=== PATIENT | female | born 1970 | race Caucasian/White ===

== ENCOUNTER 2022-03-18 11:03 | Outpatient (CLI) | payer OTHER ==
[~2022-03-18 11:03] MED LIST: ALBUTEROL SULFATE 2.5 MG/0.5 ML INH NEB SOLN INH PRN; EPINEPHrine INJ 1 MG/ML 1ML AMP IM PRN; diphenhydrAMINE 50MG/ML VIAL (J1200) IV PRN; methylPREDNISolone 125MG 2ML VIAL IV PRN
[2022-03-18 11:17] VITALS: BP 176/79
[2022-03-18] MEDS ORDERED: IRON SUCROSE 200 MG in NS 100 ML OVER 1 HR IV ONE (11:30)
[2022-03-18] MEDS ORDERED: ACETAMINOPHEN TAB 650MG DOSE (2X325MG) PO ONE (11:30)
[2022-03-18] MEDS ORDERED: NS 1,000 ML IV SCH (11:30)
[2022-03-18 12:19] VITALS: BP 153/71
== END 2022-03-18 12:30 | disposition home or self-care (01) ==
LOC: M INFU 11:03 → EDUNIT# 11:30 → M INFU 12:30
PROVIDERS: ATTEND Student in an Organized Health Care Education/Training Program
DX: D50.8 Other iron deficiency anemias (principal)
CPT/HCPCS: 96365; J1756

== ENCOUNTER 2022-03-27 12:37 | Outpatient (CLI) | payer OTHER ==
[~2022-03-27] VITALS: Ht 167.6 cm; Wt 77.0 kg
[~2022-03-27 12:37] MED LIST changes: +ACETAMINOPHEN TAB 650MG DOSE (2X325MG) PO ONE; +IRON SUCROSE 200 MG in NS 100 ML OVER 1 HR IV ONE; +NS 1,000 ML IV SCH
[2022-03-27 13:05] VITALS: BP 136/77
[2022-03-27 14:35] VITALS: BP 172/87
== END 2022-03-27 14:35 | disposition home or self-care (01) ==
LOC: M INFU 12:37
PROVIDERS: ATTEND Student in an Organized Health Care Education/Training Program
DX: D50.8 Other iron deficiency anemias (principal); Z88.5 Allergy status to narcotic agent
CPT/HCPCS: 96365; J1756

== ENCOUNTER → 2022-08-05 | Outpatient (CLI) | payer OTHER | LOC: M INFU 08:00 | PROVIDERS: ATTEND Student in an Organized Health Care Education/Training Program | DX: Z53.9 Procedure and treatment not carried out, unspecified reason (principal); D50.8 Other iron deficiency anemias; Z88.5 Allergy status to narcotic agent ==

== ENCOUNTER → 2022-10-24 | Outpatient (REF) | payer OTHER ==
[2022-10-24 14:09] LABS: BASO # 0.1 10^3/uL (0.0-0.2); BASO % 0.9 % (0.0-1.0); EOS # 0.3 10^3/uL (0.0-0.5); EOS % 2.3 % (0.0-3.0); HEMATOCRIT 39.3 % (36.0-47.0); HEMOGLOBIN 11.9 g/dl (12.0-15.5); LYMPH # 3.7 10^3/uL (1.5-5.0); MEAN CORPUSCULAR HEMOGLOBIN 25.2 pg (27.0-33.0); MEAN CORPUSCULAR HGB CONC 30.3 g/dl (32.0-36.5); MEAN CORPUSCULAR VOLUME 83.3 fl (80.0-96.0); MONO # 0.4 10^3/uL (0.0-0.8); MONO % 3.1 % (2.0-8.0); NEUTROPHILS # 6.9 10^3/uL (1.5-8.5); NEUTROPHILS % 60.3 % (36.0-66.0); PLATELET COUNT, AUTOMATED 427 10^3/uL (150-450); RED BLOOD COUNT 4.72 10^6/uL (4.00-5.40); WHITE BLOOD COUNT 11.3 10^3/uL (4.0-10.0)
[2022-10-24 14:17] LABS: TOTAL PROTEIN,RANDOM URINE 36.9 MG/DL (0.0-14.0)
[2022-10-24 14:20] LABS: CREATININE,RANDOM URINE 154.6 MG/DL
[2022-10-24 14:22] LABS: ERYTHROCYTE SEDIMENTATION RATE 45 mm/hr (0-30)
[2022-10-24 14:35] LABS: MAGNESIUM LEVEL 1.9 MG/DL (1.8-2.4)
[2022-10-24 14:37] LABS: CPK CREATINE PHOSPHOKINASE 148 U/L (34-145)
[2022-10-24 14:39] LABS: PTH INTACT 41.4 PG/ML (18.5-88.0)
[2022-10-24 14:40] LABS: COMPLEMENT C3 151.1 MG/DL (90.0-170.0); COMPLEMENT C4 13.6 MG/DL (12-36)
[2022-10-24 14:41] LABS: TOTAL 25(OH) VITAMIN D 17.1 NG/ML (20.0-100.0)
[2022-10-24 15:50] LABS: APPEARANCE, URINE MANUAL CLOUDY (CLEAR); BILIRUBIN, URINE MANUAL NEGATIVE (NEGATIVE); BLOOD URINE MANUAL NEGATIVE (NEGATIVE); COLOR, URINE MANUAL YELLOW (YELLOW); GLUCOSE, URINE (UA) MANUAL NEGATIVE (NEGATIVE); KETONE, URINE MANUAL NEGATIVE (NEGATIVE); LEUKOCYTE ESTERASE, URINE MAN TRACE (NEGATIVE); NITRITE, URINE MANUAL NEGATIVE (NEGATIVE); PROTEIN, URINE MANUAL TRACE mg/dL (NEGATIVE); SPECIFIC GRAVITY,URINE MANUAL 1.025 (1.002-1.035); UROBILINOGEN, URINE MANUAL NORMAL (NORMAL)
[2022-10-24 16:13] LABS: BACTERIA, URINE MOD AMOUNT; CALCIUM OXALATE CRYSTALS,URINE SMALL AMOUNT /hpf; HYALINE CAST, URINE NONE SEEN /lpf (0-1); MUCUS, URINE LARGE AMOUNT (NEGATIVE); RBC, URINE 0-1 /hpf (0-3); SQUAMOUS EPITHELIAL CELL URINE LARGE AMOUNT /hpf (SMALL AMT)
[2022-10-27 19:07] LABS: ALBUMIN 3.9 g/dL (2.9-4.4); ALPHA-1-GLOBULINS 0.3 g/dL (0.0-0.4); ALPHA-2-GLOBULINS 1.1 g/dL (0.4-1.0); BETA-1-GLOBULINS 1.2 g/dL (0.7-1.3); TOTAL PROTEIN ELECTROPHORESIS 7.5 g/dL (6.0-8.5)
[2022-10-30 12:15] LABS: DRVV SCREEN 43.1 SEC
[2022-10-30 12:20] LABS: PTT LUPUS TYPE ANTICOAG SCREEN 1.1 (0-1.2)
== END ==
LOC: M SFHCRHEU 08:54
PROVIDERS: ATTEND Internal Medicine
DX: M25.50 Pain in unspecified joint (principal); R80.9 Proteinuria, unspecified; R76.0 Raised antibody titer; E55.9 Vitamin D deficiency, unspecified; M79.10 Myalgia, unspecified site

== ENCOUNTER → 2023-07-25 | Outpatient (CLI) | payer OTHER ==
[2023-07-25 11:02] LABS: BASO # 0.1 10^3/uL (0.0-0.2); BASO % 1.2 % (0.0-1.0); EOS # 0.3 10^3/uL (0.0-0.5); EOS % 2.4 % (0.0-3.0); HEMATOCRIT 38.8 % (36.0-47.0); HEMOGLOBIN 11.7 g/dl (12.0-15.5); LYMPH # 2.8 10^3/uL (1.5-5.0); LYMPH % 26.6 % (24.0-44.0); MEAN CORPUSCULAR HEMOGLOBIN 24.4 pg (27.0-33.0); MEAN CORPUSCULAR HGB CONC 30.2 g/dl (32.0-36.5); MEAN CORPUSCULAR VOLUME 80.8 fl (80.0-96.0); MONO # 0.5 10^3/uL (0.0-0.8); MONO % 5.2 % (2.0-8.0); NEUTROPHILS # 6.7 10^3/uL (1.5-8.5); NEUTROPHILS % 64.2 % (36.0-66.0); PLATELET COUNT, AUTOMATED 406 10^3/uL (150-450); WHITE BLOOD COUNT 10.4 10^3/uL (4.0-10.0)
[2023-07-25 11:26] LABS: ALBUMIN 3.7 G/DL (3.2-5.2); ALKALINE PHOSPHATASE 86 U/L (46-116); ALT/SGPT 25 U/L (7.0-40); AST/SGOT 17 U/L (<34); BILIRUBIN,DIRECT < 0.1 MG/DL (<0.4); BILIRUBIN,TOTAL 0.3 MG/DL (0.3-1.2); BLOOD UREA NITROGEN 16 MG/DL (9-23); CALCIUM LEVEL 9.4 MG/DL (8.5-10.1); CARBON DIOXIDE LEVEL 30 MMOL/L (20-31); CHLORIDE LEVEL 108 MMOL/L (98-107); GLOMERULAR FILTRATION RATE > 60.0 (>51); GLUCOSE, FASTING 84 MG/DL (60-100); SODIUM LEVEL 143 MMOL/L (136-145); TOTAL PROTEIN 7.4 G/DL (5.7-8.2)
[2023-07-25 11:44] LABS: ERYTHROCYTE SEDIMENTATION RATE 58 mm/hr (0-30)
== END ==
LOC: M LAB 09:02
PROVIDERS: ATTEND Internal Medicine
DX: M06.09 Rheumatoid arthritis without rheumatoid factor, multiple sites (principal)

== ENCOUNTER → 2023-09-10 | Outpatient (CLI) | payer OTHER ==
[~2023-09-10] VITALS: Ht 167.6 cm; Wt 65.9 kg
[~2023-09-10] MED LIST changes: -ALBUTEROL SULFATE 2.5 MG/0.5 ML INH NEB SOLN INH PRN; +ALBUTEROL SULFATE 2.5MG/0.5ML INH NEB SOLN INH PRN; +IRON SUCROSE 175 MG in NS 100 ML IV ONE; +IRON SUCROSE 25 MG in NS 23.75 ML IV ONE; -diphenhydrAMINE 50MG/ML VIAL (J1200) IV PRN; +diphenhydrAMINE 50MG/ML VIAL IV PRN
[2023-09-10 07:42] VITALS: BP 171/90; O2SAT 97
[2023-09-10 10:11] VITALS: BP 152/82; O2SAT 94
== END ==
LOC: M INFU 07:03
PROVIDERS: ATTEND Student in an Organized Health Care Education/Training Program
DX: D50.9 Iron deficiency anemia, unspecified (principal); Z88.5 Allergy status to narcotic agent
CPT/HCPCS: 96365; 96366; J1756

== ENCOUNTER 2023-09-17 07:25 | Outpatient (CLI) | payer OTHER ==
[~2023-09-17] VITALS: Ht 154.9 cm; Wt 62.3 kg
[~2023-09-17 07:25] MED LIST changes: -ACETAMINOPHEN TAB 650MG DOSE (2X325MG) PO ONE; -IRON SUCROSE 175 MG in NS 100 ML IV ONE; -IRON SUCROSE 200 MG in NS 100 ML OVER 1 HR IV ONE; -IRON SUCROSE 25 MG in NS 23.75 ML IV ONE; -NS 1,000 ML IV SCH
[2023-09-17] MEDS ORDERED: ACETAMINOPHEN TAB 650MG DOSE (2X325MG) PO ONE (07:30)
[2023-09-17] MEDS ORDERED: NS 1,000 ML IV SCH (07:30)
[2023-09-17] MEDS ORDERED: IRON SUCROSE 200 MG in NS 100 ML OVER 1 HR IV ONE (07:30)
[2023-09-17 07:37] VITALS: BP 184/96; O2SAT 95
[2023-09-17 09:34] VITALS: BP 158/86; O2SAT 97
== END 2023-09-17 09:35 | disposition home or self-care (01) ==
LOC: M INFU 07:25
PROVIDERS: ATTEND Student in an Organized Health Care Education/Training Program
DX: D64.9 Anemia, unspecified (principal); Z88.5 Allergy status to narcotic agent
CPT/HCPCS: 96365; J1756

== ENCOUNTER 2023-09-23 15:20 | Outpatient (CLI) | payer OTHER ==
[2023-09-23] MEDS ORDERED: IRON SUCROSE 200 MG in NS 100 ML OVER 1 HR IV ONE (16:00)
[2023-09-23] MEDS ORDERED: ACETAMINOPHEN TAB 650MG DOSE (2X325MG) PO ONE (16:00)
[2023-09-23] MEDS ORDERED: NS 1,000 ML IV SCH (16:00)
[2023-09-23 16:05] VITALS: BP 116/57; O2SAT 97
[2023-09-23 17:27] VITALS: BP 138/68; O2SAT 96
== END 2023-09-23 17:30 | disposition home or self-care (01) ==
LOC: M INFU 15:20
PROVIDERS: ATTEND Student in an Organized Health Care Education/Training Program
DX: D64.9 Anemia, unspecified (principal); D50.9 Iron deficiency anemia, unspecified; Z88.5 Allergy status to narcotic agent
CPT/HCPCS: 96365; J1756

== ENCOUNTER → 2023-09-23 | Outpatient (CLI) | payer OTHER ==
[2023-09-23 15:57] LABS: BASO % 0.4 % (0.0-1.0); EOS # 0.2 10^3/uL (0.0-0.5); EOS % 2.3 % (0.0-3.0); HEMOGLOBIN 10.6 g/dl (12.0-15.5); LYMPH # 2.7 10^3/uL (1.5-5.0); LYMPH % 32.6 % (24.0-44.0); MEAN CORPUSCULAR HEMOGLOBIN 25.7 pg (27.0-33.0); MEAN CORPUSCULAR HGB CONC 31.2 g/dl (32.0-36.5); MEAN CORPUSCULAR VOLUME 82.5 fl (80.0-96.0); MONO # 0.1 10^3/uL (0.0-0.8); MONO % 0.8 % (2.0-8.0); NEUTROPHILS # 5.3 10^3/uL (1.5-8.5); NEUTROPHILS % 63.7 % (36.0-66.0); PLATELET COUNT, AUTOMATED 336 10^3/uL (150-450); RED BLOOD COUNT 4.12 10^6/uL (4.00-5.40); WHITE BLOOD COUNT 8.4 10^3/uL (4.0-10.0)
[2023-09-23 16:05] LABS: ERYTHROCYTE SEDIMENTATION RATE 98 mm/hr (0-30)
[2023-09-23 16:20] LABS: ALBUMIN 3.4 G/DL (3.2-5.2); ALKALINE PHOSPHATASE 76 U/L (46-116); ALT/SGPT 29 U/L (7.0-40); AST/SGOT 18 U/L (<34); BILIRUBIN,DIRECT < 0.1 MG/DL (<0.4); BILIRUBIN,TOTAL 0.4 MG/DL (0.3-1.2); BLOOD UREA NITROGEN 14 MG/DL (9-23); CALCIUM LEVEL 8.6 MG/DL (8.5-10.1); CARBON DIOXIDE LEVEL 28 MMOL/L (20-31); CHLORIDE LEVEL 108 MMOL/L (98-107); CREATININE FOR GFR 0.67 MG/DL (0.55-1.30); GLOMERULAR FILTRATION RATE > 60.0 (>51); GLUCOSE, FASTING 85 MG/DL (60-100); POTASSIUM SERUM 4.2 MMOL/L (3.5-5.1); SODIUM LEVEL 142 MMOL/L (136-145); TOTAL PROTEIN 6.9 G/DL (5.7-8.2)
== END ==
LOC: M LAB 15:25
PROVIDERS: ATTEND Internal Medicine
DX: M06.09 Rheumatoid arthritis without rheumatoid factor, multiple sites (principal)

== ENCOUNTER 2023-10-01 16:15 | Outpatient (CLI) | payer OTHER ==
[~2023-10-01] VITALS: Ht 167.6 cm; Wt 63.0 kg
[2023-10-01 16:20] VITALS: BP 122/54; O2SAT 96
[2023-10-01] MEDS ORDERED: NS 1,000 ML IV SCH (16:30)
[2023-10-01] MEDS ORDERED: ACETAMINOPHEN TAB 650MG DOSE (2X325MG) PO ONE (16:30)
[2023-10-01] MEDS ORDERED: IRON SUCROSE 200 MG in NS 100 ML OVER 1 HR IV ONE (16:30)
[2023-10-01 17:49] VITALS: BP 137/70; O2SAT 98
== END 2023-10-01 17:50 | disposition home or self-care (01) ==
LOC: M INFU 16:15
PROVIDERS: ATTEND Student in an Organized Health Care Education/Training Program
DX: D50.9 Iron deficiency anemia, unspecified (principal); Z88.5 Allergy status to narcotic agent
CPT/HCPCS: 96365; J1756

== ENCOUNTER 2023-10-08 07:25 | Outpatient (CLI) | payer OTHER ==
[~2023-10-08] VITALS: Ht 167.6 cm; Wt 85.2 kg
[~2023-10-08 07:25] MED LIST changes: +NS 1,000 ML IV SCH
[2023-10-08] MEDS ORDERED: ACETAMINOPHEN TAB 650MG DOSE (2X325MG) PO ONE (07:30)
[2023-10-08] MEDS ORDERED: IRON SUCROSE 200 MG in NS 100 ML OVER 1 HR IV ONE (07:30)
[2023-10-08 07:35] VITALS: O2SAT 98
[2023-10-08 08:51] VITALS: BP 139/83; O2SAT 95
== END 2023-10-08 08:50 | disposition home or self-care (01) ==
LOC: M INFU 07:25
PROVIDERS: ATTEND Student in an Organized Health Care Education/Training Program
DX: D50.9 Iron deficiency anemia, unspecified (principal); Z88.5 Allergy status to narcotic agent
CPT/HCPCS: 96365; J1756

== ENCOUNTER → 2023-12-24 | Outpatient (CLI) | payer OTHER ==
[~2023-12-24] MED LIST changes: -ALBUTEROL SULFATE 2.5MG/0.5ML INH NEB SOLN INH PRN; +AMLO10TA PO; +CLOT1CRE71; -EPINEPHrine INJ 1 MG/ML 1ML AMP IM PRN; +FLOM0.4C39 PO; +FOLI1TAB11 PO; +HYDR-4514 PO; +LEXA1TAB PO; +LISI10TA22 PO; +MACR100C43 PO; +METH2.5T48 PO; +MYRB25TA PO; +NABU-71 PO; -NS 1,000 ML IV SCH; +PANT40TA29 PO; +PREG150C2 PO; +PREM0.45 PO; +SYNT150T PO; +TIZA10TA PO; +TRAZ-257 PO; -diphenhydrAMINE 50MG/ML VIAL IV PRN; -methylPREDNISolone 125MG 2ML VIAL IV PRN
[2023-12-24 12:05] LABS: BASO # 0.1 10^3/uL (0.0-0.2); BASO % 0.8 % (0.0-1.0); EOS # 0.2 10^3/uL (0.0-0.5); EOS % 2.1 % (0.0-3.0); HEMATOCRIT 40.8 % (36.0-47.0); HEMOGLOBIN 13.9 g/dl (12.0-15.5); LYMPH # 2.1 10^3/uL (1.5-5.0); LYMPH % 24.6 % (24.0-44.0); MEAN CORPUSCULAR HEMOGLOBIN 32.1 pg (27.0-33.0); MEAN CORPUSCULAR HGB CONC 34.1 g/dl (32.0-36.5); MEAN CORPUSCULAR VOLUME 94.2 fl (80.0-96.0); MONO # 0.3 10^3/uL (0.0-0.8); MONO % 3.1 % (2.0-8.0); NEUTROPHILS % 69.1 % (36.0-66.0); PLATELET COUNT, AUTOMATED 286 10^3/uL (150-450); RED BLOOD COUNT 4.33 10^6/uL (4.00-5.40); WHITE BLOOD COUNT 8.6 10^3/uL (4.0-10.0)
[2023-12-24 12:35] LABS: ERYTHROCYTE SEDIMENTATION RATE 24 mm/hr (0-30)
[2023-12-24 12:36] LABS: ALBUMIN 3.8 G/DL (3.2-5.2); ALKALINE PHOSPHATASE 77 U/L (46-116); ALT/SGPT 17 U/L (7.0-40); AST/SGOT 12 U/L (<34); BILIRUBIN,DIRECT < 0.1 MG/DL (<0.4); BILIRUBIN,TOTAL 0.3 MG/DL (0.3-1.2); BLOOD UREA NITROGEN 15 MG/DL (9-23); CALCIUM LEVEL 8.9 MG/DL (8.5-10.1); CARBON DIOXIDE LEVEL 29 MMOL/L (20-31); CHLORIDE LEVEL 109 MMOL/L (98-107); GLOMERULAR FILTRATION RATE > 60.0 (>51); GLUCOSE, FASTING 91 MG/DL (60-100); POTASSIUM SERUM 4.2 MMOL/L (3.5-5.1); SODIUM LEVEL 141 MMOL/L (136-145)
== END ==
LOC: M LAB 10:58
PROVIDERS: ATTEND Internal Medicine
DX: M06.09 Rheumatoid arthritis without rheumatoid factor, multiple sites (principal)

== ENCOUNTER → 2023-12-24 | Outpatient (CLI) | payer OTHER | LOC: M LAB 10:59 | PROVIDERS: ATTEND Urology | DX: N81.10 Cystocele, unspecified (principal); Z53.9 Procedure and treatment not carried out, unspecified reason ==

== ENCOUNTER 2023-12-28 08:22 | Day surgery (SDC) | payer OTHER ==
[~2023-12-28] VITALS: Ht 167.6 cm; Wt 78.9 kg
[~2023-12-28 08:22] MED LIST changes: -HYDR-4514 PO; -MACR100C43 PO; +ceFAZolin SOD 2 GM in IV 1 EA IV ONE
[2023-12-28] MEDS ORDERED: LR 1,000 ML IV SCH ×2 (09:45→13:30)
[2023-12-28] MEDS ORDERED: ePHEDrine SULFATE 25 MG/5 ML(5MG/ML) SYRINGE As Ordered ONE (10:00)
[2023-12-28] MEDS ORDERED: ROCURONIUM BROMIDE 50MG/5ML VIAL As Ordered ONE (10:00)
[2023-12-28] MEDS ORDERED: PHENYLephrine 500MCG 5ML (100MCG/ML) SYRINGE As Ordered ONE (10:00)
[2023-12-28] MEDS ORDERED: propofoL 200 MG/20 ML VIAL As Ordered ONE (10:00)
[2023-12-28] MEDS ORDERED: LIDOCAINE 2% 100MG/5ML SDV (FOR ANES.) As Ordered ONE (10:00)
[2023-12-28] MEDS ORDERED: ONDANSETRON 4MG 2ML VIAL As Ordered ONE (10:00)
[2023-12-28] MEDS ORDERED: fentaNYL 100 MCG/2 ML INJECTION As Ordered ONE (10:01)
[2023-12-28] MEDS ORDERED: MIDAZOLAM INJ 2MG/2ML VIAL As Ordered ONE (10:01)
[2023-12-28] MEDS ORDERED: ESTROGENS VAGINAL CREAM 30GM As Ordered ONE (10:31)
[2023-12-28] MEDS ORDERED: METHYLENE BLUE 0.5% (5MG/ML) 10 ML AMP (PROVAYBLUE) As Ordered ONE (10:31)
[2023-12-28] MEDS: SCOPOLAMINE 1MG TRANSDERMAL PATCH TOP ONE (11:02)
[2023-12-28] MEDS ORDERED: ACETAMINOPHEN 1000MG 100ML IV BAG As Ordered ONE (11:43)
[2023-12-28] MEDS ORDERED: KETOROLAC 60MG 2ML VIAL As Ordered ONE (12:07)
[2023-12-28] MEDS: LIDOCAINE W/EPINEPHRINE 1% 20ML VIAL As Ordered ONE (12:15)
[2023-12-28] MEDS ORDERED: HYDROMORPHONE HCL 0.5 MG/ 0.5 ML SYRINGE IV PRN (13:30)
[2023-12-28] MEDS ORDERED: ONDANSETRON 4MG 2ML VIAL IV PRN (13:30)
[2023-12-28] MEDS: fentaNYL 100 MCG/2 ML INJECTION IV PRN (13:55)
[2023-12-28] MEDS ORDERED: MACR100C43 PO (14:02)
[2023-12-28] MEDS ORDERED: HYDR-4514 PO (14:02)
[2023-12-28] MEDS: HYDROMORPHONE HCL 0.5 MG/ 0.5 ML SYRINGE IV PRN (14:50)
[2023-12-28] MEDS: traMADol 50 MG TAB PO ONE (15:11)
[2023-12-28 15:35] VITALS: BP 153/78; TEMP 98.1; O2SAT 96
== END 2023-12-28 16:10 | disposition home or self-care (01) ==
LOC: M SDC 08:22
PROVIDERS: ATTEND Urology
DX: N81.10 Cystocele, unspecified (principal); R39.198 Other difficulties with micturition; I10 Essential (primary) hypertension; E03.9 Hypothyroidism, unspecified; K21.9 Gastro-esophageal reflux disease without esophagitis; G43.909 Migraine, unspecified, not intractable, without status migrainosus; D64.9 Anemia, unspecified; F41.9 Anxiety disorder, unspecified; F32.A Depression, unspecified; Z79.899 Other long term (current) drug therapy; Z91.040 Latex allergy status; Z88.5 Allergy status to narcotic agent
CPT/HCPCS: 57240; 88302; J0131; J1100; J1170; J1885; J2250; J2371; J2405; J3010

== ENCOUNTER → 2024-01-07 | Outpatient (REF) | payer OTHER ==
[~2024-01-07] MED LIST changes: +HYDR-4514 PO; +MACR100C43 PO; -ceFAZolin SOD 2 GM in IV 1 EA IV ONE
[2024-01-07 13:14] LABS: APPEARANCE, URINE HAZY (CLEAR); BACTERIA, URINE AUTO NEGATIVE (NEGATIVE); BILIRUBIN, URINE AUTO NEGATIVE (NEGATIVE); BLOOD, URINE BLOOD 2+ (NEGATIVE); COLOR, URINE YELLOW (YELLOW); GLUCOSE, URINE (UA) AUTO NEGATIVE (NEGATIVE); KETONE, URINE AUTO NEGATIVE (NEGATIVE); LEUKOCYTE ESTERASE, URINE AUTO 3+ (NEGATIVE); NITRITE, URINE AUTO NEGATIVE (NEGATIVE); PROTEIN, URINE AUTO NEGATIVE (NEGATIVE); RBC, URINE AUTO 19 /HPF (0-3); SPECIFIC GRAVITY URINE AUTO 1.016 (1.002-1.035); SQUAMOUS EPITHELIAL CELL UR AU 2 /HPF (0-6); UROBILINOGEN, URINE AUTO 0.2 mg/dL (0.0-2.0); WBC, URINE AUTO 49 /HPF (0-3)
== END ==
LOC: M SMT 12:36
PROVIDERS: ATTEND Urology
DX: R30.0 Dysuria (principal)

== ENCOUNTER → 2024-02-22 | Outpatient (CLI) | payer OTHER ==
[2024-02-22 08:46] LABS: BASO % 0.4 % (0.0-1.0); EOS # 0.2 10^3/uL (0.0-0.5); EOS % 2.1 % (0.0-3.0); HEMATOCRIT 42.1 % (36.0-47.0); HEMOGLOBIN 13.9 g/dl (12.0-15.5); LYMPH # 1.8 10^3/uL (1.5-5.0); LYMPH % 16.9 % (24.0-44.0); MEAN CORPUSCULAR HEMOGLOBIN 31.3 pg (27.0-33.0); MEAN CORPUSCULAR VOLUME 94.8 fl (80.0-96.0); MONO # 0.5 10^3/uL (0.0-0.8); MONO % 4.3 % (2.0-8.0); NEUTROPHILS # 8.2 10^3/uL (1.5-8.5); NEUTROPHILS % 75.8 % (36.0-66.0); PLATELET COUNT, AUTOMATED 236 10^3/uL (150-450); RED BLOOD COUNT 4.44 10^6/uL (4.00-5.40); WHITE BLOOD COUNT 10.8 10^3/uL (4.0-10.0)
[2024-02-22 09:05] LABS: ERYTHROCYTE SEDIMENTATION RATE 33 mm/hr (0-30)
[2024-02-22 09:09] LABS: ALBUMIN 3.8 G/DL (3.2-5.2); ALKALINE PHOSPHATASE 98 U/L (46-116); ALT/SGPT 41 U/L (7.0-40); AST/SGOT 24 U/L (<34); BILIRUBIN,DIRECT < 0.1 MG/DL (<0.4); BILIRUBIN,TOTAL 0.3 MG/DL (0.3-1.2); BLOOD UREA NITROGEN 16 MG/DL (9-23); CALCIUM LEVEL 9.1 MG/DL (8.5-10.1); CARBON DIOXIDE LEVEL 28 MMOL/L (20-31); CHLORIDE LEVEL 108 MMOL/L (98-107); CREATININE FOR GFR 0.63 MG/DL (0.55-1.30); GLOMERULAR FILTRATION RATE > 60.0 (>51); GLUCOSE, FASTING 113 MG/DL (60-100); POTASSIUM SERUM 4.1 MMOL/L (3.5-5.1); SODIUM LEVEL 143 MMOL/L (136-145); TOTAL PROTEIN 7.2 G/DL (5.7-8.2)
== END ==
LOC: M LAB 07:58
PROVIDERS: ATTEND Internal Medicine
DX: M06.09 Rheumatoid arthritis without rheumatoid factor, multiple sites (principal)

== ENCOUNTER → 2024-04-28 | Outpatient (CLI) | payer OTHER ==
[2024-04-28 09:50] LABS: BASO # 0.1 10^3/uL (0.0-0.2); EOS # 0.2 10^3/uL (0.0-0.5); EOS % 1.7 % (0.0-3.0); HEMATOCRIT 41.1 % (36.0-47.0); HEMOGLOBIN 13.4 g/dl (12.0-15.5); LYMPH # 2.7 10^3/uL (1.5-5.0); LYMPH % 27.7 % (24.0-44.0); MEAN CORPUSCULAR HEMOGLOBIN 31.2 pg (27.0-33.0); MEAN CORPUSCULAR HGB CONC 32.6 g/dl (32.0-36.5); MEAN CORPUSCULAR VOLUME 95.8 fl (80.0-96.0); MONO # 0.5 10^3/uL (0.0-0.8); MONO % 5.2 % (2.0-8.0); NEUTROPHILS # 6.3 10^3/uL (1.5-8.5); NEUTROPHILS % 64.1 % (36.0-66.0); PLATELET COUNT, AUTOMATED 334 10^3/uL (150-450); RED BLOOD COUNT 4.29 10^6/uL (4.00-5.40); WHITE BLOOD COUNT 9.8 10^3/uL (4.0-10.0)
[2024-04-28 09:59] LABS: ERYTHROCYTE SEDIMENTATION RATE 39 mm/hr (0-30)
[2024-04-28 10:14] LABS: ALBUMIN 3.9 G/DL (3.2-5.2); ALKALINE PHOSPHATASE 90 U/L (46-116); ALT/SGPT 16 U/L (7.0-40); AST/SGOT 9 U/L (<34); BILIRUBIN,DIRECT < 0.1 MG/DL (<0.4); BILIRUBIN,TOTAL 0.3 MG/DL (0.3-1.2); BLOOD UREA NITROGEN 23 MG/DL (9-23); CALCIUM LEVEL 9.7 MG/DL (8.5-10.1); CARBON DIOXIDE LEVEL 31 MMOL/L (20-31); CHLORIDE LEVEL 106 MMOL/L (98-107); CREATININE FOR GFR 0.68 MG/DL (0.55-1.30); GLOMERULAR FILTRATION RATE > 60.0 (>51); GLUCOSE, FASTING 88 MG/DL (60-100); POTASSIUM SERUM 4.5 MMOL/L (3.5-5.1); SODIUM LEVEL 142 MMOL/L (136-145); TOTAL PROTEIN 7.3 G/DL (5.7-8.2)
== END ==
LOC: M LAB 09:00
PROVIDERS: ATTEND Internal Medicine
DX: M06.09 Rheumatoid arthritis without rheumatoid factor, multiple sites (principal)

== ENCOUNTER 2024-07-06 12:53 | Emergency (ER) | payer OTHER ==
[~2024-07-06] VITALS: Ht 167.6 cm; Wt 75.7 kg
[2024-07-06 15:17] VITALS: BP 163/93; TEMP 98.5; O2SAT 100
== END 2024-07-06 16:38 | disposition left against medical advice (07) ==
LOC: M ED 12:53
DX: Z53.21 Procedure and treatment not carried out due to patient leaving prior to being seen by health care provider (principal)

== ENCOUNTER → 2024-07-22 | Outpatient (REF) | payer OTHER ==
[2024-07-22 13:32] LABS: BASO # 0.1 10^3/uL (0.0-0.2); EOS # 0.1 10^3/uL (0.0-0.5); EOS % 1.6 % (0.0-3.0); HEMOGLOBIN 13.9 g/dl (12.0-15.5); LYMPH # 1.5 10^3/uL (1.5-5.0); LYMPH % 19.5 % (24.0-44.0); MEAN CORPUSCULAR HEMOGLOBIN 33.1 pg (27.0-33.0); MEAN CORPUSCULAR HGB CONC 33.1 g/dl (32.0-36.5); MONO # 0.4 10^3/uL (0.0-0.8); MONO % 5.6 % (2.0-8.0); NEUTROPHILS # 5.7 10^3/uL (1.5-8.5); NEUTROPHILS % 71.8 % (36.0-66.0); PLATELET COUNT, AUTOMATED 438 10^3/uL (150-450); WHITE BLOOD COUNT 7.9 10^3/uL (4.0-10.0)
[2024-07-22 13:35] LABS: ALKALINE PHOSPHATASE 84 U/L (46-116); ALT/SGPT 20 U/L (7.0-40); AST/SGOT 15 U/L (<34); BILIRUBIN,DIRECT < 0.1 MG/DL (<0.4); BILIRUBIN,TOTAL 0.3 MG/DL (0.3-1.2); BLOOD UREA NITROGEN 15 MG/DL (9-23); CALCIUM LEVEL 9.9 MG/DL (8.5-10.1); CARBON DIOXIDE LEVEL 31 MMOL/L (20-31); CHLORIDE LEVEL 107 MMOL/L (98-107); CREATININE FOR GFR 0.65 MG/DL (0.55-1.30); GLOMERULAR FILTRATION RATE > 60.0 (>51); GLUCOSE, FASTING 98 MG/DL (60-100); SODIUM LEVEL 138 MMOL/L (136-145); TOTAL PROTEIN 7.9 G/DL (5.7-8.2)
[2024-07-22 13:50] LABS: ERYTHROCYTE SEDIMENTATION RATE 23 mm/hr (0-30)
== END ==
LOC: M SFHCRHEU 08:30
PROVIDERS: ATTEND Internal Medicine
DX: M06.09 Rheumatoid arthritis without rheumatoid factor, multiple sites (principal)

== ENCOUNTER → 2024-08-05 | Outpatient (REF) | payer OTHER ==
[2024-08-05 15:36] LABS: HEPATITIS B SURFACE ANTIBODY NEGATIVE (POSITIVE)
[2024-08-05 15:48] LABS: HEPATITIS B SURFACE ANTIGEN NEGATIVE (NEGATIVE)
[2024-08-05 16:09] LABS: HEPATITIS C VIRUS ABY INDEX < 0.02 INDEX (<0.8)
[2024-08-06 12:57] LABS: HEPATITIS B CORE ANTIBODY IGG NON-REACTIVE (NON-REACTIVE)
[2024-08-09 11:22] LABS: QuantiFERON-TB Gold Plus NEGATIVE (NEGATIVE)
== END ==
LOC: M SFHCRHEU 08:23
PROVIDERS: ATTEND Internal Medicine
DX: M06.09 Rheumatoid arthritis without rheumatoid factor, multiple sites (principal); Z11.59 Encounter for screening for other viral diseases

== ENCOUNTER → 2024-09-02 | Outpatient (REF) | payer OTHER ==
[2024-09-02 12:41] LABS: BASO # 0.1 10^3/uL (0.0-0.2); BASO % 0.8 % (0.0-1.0); EOS # 0.1 10^3/uL (0.0-0.5); EOS % 0.9 % (0.0-3.0); HEMATOCRIT 46.6 % (36.0-47.0); HEMOGLOBIN 15.5 g/dl (12.0-15.5); LYMPH # 2.4 10^3/uL (1.5-5.0); LYMPH % 20.6 % (24.0-44.0); MEAN CORPUSCULAR HEMOGLOBIN 31.8 pg (27.0-33.0); MEAN CORPUSCULAR HGB CONC 33.3 g/dl (32.0-36.5); MEAN CORPUSCULAR VOLUME 95.7 fl (80.0-96.0); MONO # 0.8 10^3/uL (0.0-0.8); MONO % 6.5 % (2.0-8.0); NEUTROPHILS # 8.2 10^3/uL (1.5-8.5); NEUTROPHILS % 70.7 % (36.0-66.0); PLATELET COUNT, AUTOMATED 420 10^3/uL (150-450); RED BLOOD COUNT 4.87 10^6/uL (4.00-5.40); WHITE BLOOD COUNT 11.6 10^3/uL (4.0-10.0)
[2024-09-02 12:48] LABS: ALBUMIN 4.2 G/DL (3.2-5.2); ALKALINE PHOSPHATASE 101 U/L (35-104); ALT/SGPT 19 U/L (7.0-40); AST/SGOT 17 U/L (<34); BILIRUBIN,DIRECT 0.1 MG/DL (<0.4); BILIRUBIN,TOTAL 0.5 MG/DL (0.3-1.2); BLOOD UREA NITROGEN 18 MG/DL (9-23); CALCIUM LEVEL 10.3 MG/DL (8.5-10.1); CARBON DIOXIDE LEVEL 28 MMOL/L (20-31); CHLORIDE LEVEL 104 MMOL/L (98-107); CREATININE FOR GFR 0.77 MG/DL (0.55-1.30); GLOMERULAR FILTRATION RATE > 60.0 (>51); GLUCOSE, FASTING 120 MG/DL (60-100); POTASSIUM SERUM 4.9 MMOL/L (3.5-5.1); SODIUM LEVEL 141 MMOL/L (136-145); TOTAL PROTEIN 8.7 G/DL (5.7-8.2)
[2024-09-02 12:52] LABS: ERYTHROCYTE SEDIMENTATION RATE 15 mm/hr (0-30)
== END ==
LOC: M SFHCRHEU 09:05
PROVIDERS: ATTEND Internal Medicine
DX: M06.09 Rheumatoid arthritis without rheumatoid factor, multiple sites (principal)

== ENCOUNTER → 2025-01-05 | Outpatient (REF) | payer OTHER ==
[2025-01-05 15:29] LABS: ALBUMIN 3.8 G/DL (3.2-5.2); ALKALINE PHOSPHATASE 87 U/L (35-104); ALT/SGPT 61 U/L (7.0-40); AST/SGOT 46 U/L (<34); BASO # 0.1 10^3/uL (0.0-0.2); BILIRUBIN,DIRECT < 0.1 MG/DL (<0.4); BILIRUBIN,TOTAL 0.3 MG/DL (0.3-1.2); BLOOD UREA NITROGEN 20 MG/DL (9-23); C REACTIVE PROTEIN QUANTITATIV 1.69 MG/DL (<1.0); CALCIUM LEVEL 9.2 MG/DL (8.5-10.1); CARBON DIOXIDE LEVEL 29 MMOL/L (20-31); CHLORIDE LEVEL 105 MMOL/L (98-107); CREATININE FOR GFR 0.77 MG/DL (0.55-1.30); EOS # 0.2 10^3/uL (0.0-0.5); GLOMERULAR FILTRATION RATE > 60.0 (>51); GLUCOSE, FASTING 85 MG/DL (60-100); HEMATOCRIT 40.9 % (36.0-47.0); LYMPH # 1.9 10^3/uL (1.5-5.0); LYMPH % 22.5 % (24.0-44.0); MEAN CORPUSCULAR HEMOGLOBIN 32.4 pg (27.0-33.0); MEAN CORPUSCULAR HGB CONC 31.8 g/dl (32.0-36.5); MONO # 0.5 10^3/uL (0.0-0.8); NEUTROPHILS # 5.8 10^3/uL (1.5-8.5); NEUTROPHILS % 67.9 % (36.0-66.0); PLATELET COUNT, AUTOMATED 274 10^3/uL (150-450); POTASSIUM SERUM 4.2 MMOL/L (3.5-5.1); RED BLOOD COUNT 4.01 10^6/uL (4.00-5.40); SODIUM LEVEL 142 MMOL/L (136-145); TOTAL PROTEIN 7.4 G/DL (5.7-8.2); WHITE BLOOD COUNT 8.6 10^3/uL (4.0-10.0)
[2025-01-05 15:40] LABS: ERYTHROCYTE SEDIMENTATION RATE 31 mm/hr (0-30)
== END ==
LOC: M SFHCRHEU 08:43
PROVIDERS: ATTEND Internal Medicine
DX: M06.09 Rheumatoid arthritis without rheumatoid factor, multiple sites (principal)

== ENCOUNTER → 2025-01-13 | Outpatient (CLI) | payer OTHER ==
[~2025-01-13] MED LIST changes: +ISOVUE-370 76% 100ML VIAL ONE
== END ==
LOC: M PLAIMG 07:56
PROVIDERS: ATTEND Student in an Organized Health Care Education/Training Program
DX: I70.0 Atherosclerosis of aorta (principal); R10.9 Unspecified abdominal pain; Z72.0 Tobacco use; Z96.82 Presence of neurostimulator
CPT/HCPCS: 74160; Q9967

== ENCOUNTER → 2025-07-13 | Outpatient (REF) | payer OTHER ==
[~2025-07-13] MED LIST changes: +AMLO-751 PO; -AMLO10TA PO; -FLOM0.4C39 PO; -ISOVUE-370 76% 100ML VIAL ONE; +TAMS-18 PO
[2025-07-13 15:24] LABS: BASO # 0.1 10^3/uL (0.0-0.2); BASO % 0.9 % (0.0-1.0); EOS # 0.2 10^3/uL (0.0-0.5); EOS % 1.8 % (0.0-3.0); LYMPH # 2.5 10^3/uL (1.5-5.0); LYMPH % 28.2 % (24.0-44.0); MONO # 0.6 10^3/uL (0.0-0.8); MONO % 6.9 % (2.0-8.0); NEUTROPHILS # 5.5 10^3/uL (1.5-8.5); NEUTROPHILS % 61.6 % (36.0-66.0); PLATELET COUNT, AUTOMATED 282 10^3/uL (150-450)
[2025-07-13 15:29] LABS: ERYTHROCYTE SEDIMENTATION RATE 13 mm/hr (0-30)
[2025-07-13 15:31] LABS: ALT/SGPT 30 U/L (7.0-40); AST/SGOT 26 U/L (<34); C REACTIVE PROTEIN QUANTITATIV < 0.50 MG/DL (<1.0); CALCIUM LEVEL 9.4 MG/DL (8.5-10.1); CARBON DIOXIDE LEVEL 30 MMOL/L (20-31); CHLORIDE LEVEL 103 MMOL/L (98-107); CREATININE FOR GFR 0.74 MG/DL (0.55-1.30); GLOMERULAR FILTRATION RATE > 90.0 (>51); POTASSIUM SERUM 4.6 MMOL/L (3.5-5.1); SODIUM LEVEL 140 MMOL/L (136-145)
== END ==
LOC: M SFHCRHEU 09:00
PROVIDERS: ATTEND Internal Medicine
DX: M06.09 Rheumatoid arthritis without rheumatoid factor, multiple sites (principal)